=== PATIENT | female | born 1985 | race Asian ===

== ENCOUNTER 2019-04-26 23:38 | Inpatient (IN) | payer SELFPAY ==
[~2019-04-26] VITALS: Ht 157.5 cm; Wt 67.1 kg
[2019-04-26] MEDS ORDERED: DEXT 5%/LACTATED RINGERS 1,000 ML IV SCH (23:41)
[2019-04-26] MEDS ORDERED: LIDOCAINE HCL 1% 20ML VIAL (Pyxis) INJ INFIL SCH (23:45)
[2019-04-26] MEDS ORDERED: RHO(D) IMMUNE GLOBULIN 300 MCG/SYR IM NR (23:45)
[2019-04-27] MEDS: LACTATED RINGERS 1,000 ML IV SCH ×3 (00:05→02:30)
[2019-04-27 00:32] LABS: BASOPHILS % 0.3 % (0.0-2.0); EOSINOPHILS % 0.2 % (0.0-5.0); HEMATOCRIT. 35.9 % (36.0-48.0); HEMOGLOBIN. 12.2 g/dL (12.0-16.0); LYMPHOCYTES % 12.8 % (20.0-50.0); MEAN CORPUSCULAR HEMOGLOBIN 31.6 pg (28.0-32.0); MEAN CORPUSCULAR VOLUME 92.9 fL (81.0-99.0); MEAN PLATELET VOLUME 7.7 fl (7.4-10.4); MONOCYTES % 4.4 % (2.0-8.0); NEUTROPHILS % 82.3 % (40.0-76.0); PLATELET 253 x1000/uL (130-400); RED BLOOD CELL COUNT 3.86 mill/uL (4.2-5.4); RED CELL DISTRIBUTION WIDTH 13.7 % (11.6-14.6)
[2019-04-27 00:33] LABS: CLARITY URINE CLEAR (CLEAR); COLOR URINE YELLOW (YELLOW); KETONES URINE 3+ (NEGATIVE); LEUKOCYTE ESTERASE URINE NEGATIVE (NEGATIVE); NITRITE URINE NEGATIVE (NEGATIVE); OCCULT BLOOD URINE 1+ (NEGATIVE); PH URINE 6.5 (4.5-8.0); PROTEIN URINE NEGATIVE (NEGATIVE); SPECIFIC GRAVITY URINE 1.013 (1.005-1.030); UROBILINOGEN URINE 0.2 E.U./dL (0.2-1.0)
[2019-04-27 00:40] LABS: INR 0.9; PROTHROMBIN TIME 9.6 sec (9.6-11.0)
[2019-04-27 00:42] LABS: *AMPHETAMINES SCREEN URINE NEGATIVE (NEGATIVE); *BARBITURATES SCREEN URINE NEGATIVE (NEGATIVE)
[2019-04-27 00:43] LABS: *BENZODIAZEPINES SCREEN URINE NEGATIVE (NEGATIVE); *COCAINE SCREEN URINE NEGATIVE (NEGATIVE); CANNABINOID URINE SCREEN NEGATIVE (NEGATIVE); METHADONE URINE SCREEN NEGATIVE (NEGATIVE); OPIATES URINE SCREEN NEGATIVE (NEGATIVE); PHENCYCLIDINE URINE SCREEN NEGATIVE (NEGATIVE)
[2019-04-27] MEDS ORDERED: PENICILLIN G POTASSIUM 5 MMU in DEXT 5% WATER 100 ML IV NR (01:00)
[2019-04-27] MEDS ORDERED: ROPIVACAINE HCL/PF EPIDURAL 200 ML EPI SCH (01:00)
[2019-04-27] MEDS ORDERED: PNEUMOCOCCAL 23-VAL P-SAC VAC 0.5 ML IM ONE (03:15)
[2019-04-27] MEDS ORDERED: INFLUENZA VIRUS VACCINE(AFLURIA) 0.5ML SYR IM ONE (03:15)
[2019-04-27 04:00] LABS: HEPATITIS B SURFACE ANTIGEN NEGATIVE
[2019-04-27] MEDS ORDERED: PENICILLIN G POTASSIUM 2.5 MMU in DEXTROSE 5% WATER 50 ML IV SCH (05:00)
[2019-04-27] MEDS ORDERED: DEXT 5%/LR + PITOCIN 20UNITS/L 1,000 ML IV ONE ×2 (05:45→06:53)
[2019-04-27] MEDS ORDERED: DEXT 5%/LR + PITOCIN 20UNITS/L 1,000 ML IV SCH (06:03)
[2019-04-27] MEDS ORDERED: ACETAMINOPHEN WITH CODEINE 300/30MG TABLET PO PRN ×2 (06:15)
[2019-04-27] MEDS ORDERED: HEMORRHOIDAL SUPP PR PRN (06:15)
[2019-04-27] MEDS ORDERED: METHYLERGONOVINE MALEATE 0.2 MG/ML IM PRN (06:15)
[2019-04-27] MEDS ORDERED: IBUPROFEN 400MG TABLET PO PRN (06:15)
[2019-04-27] MEDS ORDERED: LANOLIN OINT 7GM TUBE TOP PRN (06:15)
[2019-04-27] MEDS ORDERED: GLYCERIN/WITCH HAZEL LEAF MEDICATED PAD TOP PRN (06:15)
[2019-04-27] MEDS ORDERED: BENZOCAINE/LANOLIN/ALOE VERA SPRAY TOP PRN (06:15)
[2019-04-27] MEDS ORDERED: BISACODYL 10MG SUPP PR PRN (06:15)
[2019-04-27] MEDS: SIMETHICONE 80MG TABLET CHEW PO SCH ×4 (09:00→21:47)
[2019-04-27] MEDS ORDERED: PRENATAL VIT/FE FUMARATE/FA TABLET PO SCH (09:00)
[2019-04-27] MEDS: MAGNESIUM/ALUMINUM HYDROXIDE/SIMETHICONE 30ML UDC PO SCH ×4 (09:00→21:47)
[2019-04-27 12:00] VITALS: BP 86/55
[2019-04-27 13:00] VITALS: BP 89/47
[2019-04-27 18:34] VITALS: BP 95/69
[2019-04-27 19:30] VITALS: BP 95/65
[2019-04-27] MEDS: DOCUSATE SODIUM 100MG CAPSULE PO SCH (21:47)
[2019-04-28] VITALS: BP 93/63
[2019-04-28 04:00] VITALS: BP 97/65
[2019-04-28 06:39] LABS: BASOPHILS % 0.2 % (0.0-2.0); EOSINOPHILS % 0.3 % (0.0-5.0); HEMATOCRIT. 29.9 % (36.0-48.0); HEMOGLOBIN. 10.2 g/dL (12.0-16.0); LYMPHOCYTES % 14.6 % (20.0-50.0); MEAN CORPUSCULAR HEMOGLOBIN 32.1 pg (28.0-32.0); MEAN CORPUSCULAR VOLUME 93.9 fL (81.0-99.0); MONOCYTES % 4.6 % (2.0-8.0); NEUTROPHILS % 80.3 % (40.0-76.0); PLATELET 221 x1000/uL (130-400); RED BLOOD CELL COUNT 3.19 mill/uL (4.2-5.4); RED CELL DISTRIBUTION WIDTH 13.5 % (11.6-14.6)
[2019-04-28 08:00] VITALS: BP 93/60
[2019-04-28] MEDS ORDERED: TETANUS, DIPHTHERIA, PERTUSSIS VAC/PF 0.5ML (>7YR OLD) IM ONE (08:00)
[2019-04-28] MEDS: MAGNESIUM/ALUMINUM HYDROXIDE/SIMETHICONE 30ML UDC PO SCH ×4 (08:25→21:08)
[2019-04-28] MEDS: FERROUS SULFATE 325MG TABLET PO SCH ×3 (08:26→17:00)
[2019-04-28] MEDS: SIMETHICONE 80MG TABLET CHEW PO SCH ×3 (08:26→17:00)
[2019-04-28] MEDS ORDERED: INFLUENZA VIRUS VACCINE(AFLURIA) 0.5ML SYR IM ONE (15:00)
[2019-04-28 16:00] VITALS: BP 93/48
[2019-04-28 19:30] VITALS: BP 94/60
[2019-04-28] MEDS: DOCUSATE SODIUM 100MG CAPSULE PO SCH (21:08)
[2019-04-29 04:00] VITALS: BP 102/67
[2019-04-29] MEDS ORDERED: IBUP-2028 PO (07:24)
[2019-04-29 08:15] VITALS: BP 97/63
== END 2019-04-29 18:33 | disposition home or self-care (01) | DRG 560 ==
LOC: OBSVTOIN 23:38 → 8 EST LDRP 23:38 → 8 EST A/PP 04-27 10:17
PROVIDERS: ADMIT Obstetrics & Gynecology; ATTEND Obstetrics & Gynecology
PROC: 10E0XZZ Delivery of Products of Conception, External Approach (ICD-10-PCS; principal; 2019-04-27)
PROC: 0KQM0ZZ Repair Perineum Muscle, Open Approach (ICD-10-PCS; 2019-04-27)
PROC: 3E0R3BZ Introduction of Anesthetic Agent into Spinal Canal, Percutaneous Approach (ICD-10-PCS; 2019-04-27)
PROC: 00HU33Z Insertion of Infusion Device into Spinal Canal, Percutaneous Approach (ICD-10-PCS; 2019-04-27)
DX: O69.81X0 Labor and delivery complicated by cord around neck, without compression, not applicable or unspecified (principal); O70.1 Second degree perineal laceration during delivery; Z3A.37 37 weeks gestation of pregnancy; Z37.0 Single live birth
CPT/HCPCS: 36415; 76805; 76818; 80305; 81003; 85025; 86592; 86703; 86762; 86850; 86900; 87340; 90686; 90715; 90732; 99281; J2540; J2590; J2795; J7060; A4315